=== PATIENT | male | born 1970 | race Caucasian/White ===

== ENCOUNTER 2017-12-05 21:13 | Emergency (ER) | payer OTHER, MEDICAID ==
--- NOTE | 2017-12-05 21:37 | EDPHY ---
HPI/HX/ROS/PE/MDM Narrative: CHIEF COMPLAINT: Shortness of breath, chest tightness HPI: This patient is a healthy 47 year old male. He presents following an episode of sudden onset shortness of breath while at dinner with friends. He felt it was difficult to take a deep breath. This was associated with a sensation of chest tightness and "concern". He has tingling in his hands for 1-2 minutes. He denies chest pain. The patient exercises frequently and ran 5 miles earlier this evening. His symptoms began one hour after his run. In the last few months , he has noticed more difficulty when running, but has not had similar symptoms in the past. His friends gave 1100mg crushed ASA. The patient lay down and felt well within two minutes. He denies any diaphoresis. No arm or jaw pain. He denies any personal or family history of cardiac problems. He currently feels well and has no further complaints. REVIEW OF SYSTEMS: Aside from elements discussed in the HPI, a comprehensive 10-point review of systems was reviewed and is negative. PMH: Denies. SOCIAL HISTORY: Friends at bedside. 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 Lives in [place]. PHYSICAL EXAM: General:Patient is alert, in no acute distress. ENT:Eyes are normal to inspection. ENT inspection normal. Neck: Normal inspection. Full range of motion. Respiratory: No respiratory distress. Breath sounds normal bilaterally. Cardiovascular: Regular rate and rhythm. Strong peripheral pulses. Normal cap refill. Abdomen: The abdomen is nontender to palpation. There are no peritoneal signs. There are normal bowel sounds. Back: Normal to inspection. No tenderness to palpation. Skin: Normal color. No rash. Warm and dry. Extremities: Normal appearance. Full range of motion. Neuro: Oriented x3. Normal motor function. Normal sensory function. ED Course: 47 y/o male presents following an episode of shortness of breath and chest tightness, now resolved. Plan EKG, chest x-ray, labs including CBC, chemistries , troponin. 21:48 EKG was ordered and interpreted by myself. Please see [employer] system for official reading. Sinus rhythm. Early repol pattern. Laboratory studies largely unremarkable. Troponin pending. CXR negative for acute processes. Troponin negative. Reassessed patient. He continues to feel well. Discussed results of emergency department cardiac workup. Plan for repeat EKG. 22:40 Repeat EKG was ordered and interpreted by myself. Please see [employer] system for official reading. Unchanged from prior. 22:47 Reassessed patient. Plan to discharge patient home in good condition with referral to cardiology. Return precautions discussed. He is comfortable with this plan. MDM: This patient presents with transient chest tightness which has resolved. Of note , he was asymptomatic during a five mile run prior to this event. His workup in the ED is normal and his calculated HEART score is 2, making him low risk for cardiac event. I discussed this with the patient in detail and explained the utility of a repeat troponin as well as possible admission. The patient would like to be discharged home - we discussed strict return precautions. He will be given a cardiology referral. He understands that the etiology of his symptoms is unclear and that he would benefit from further testing. I see no evidence for PE, TAD, PNA, PTx or ACS. - Data Points Imaging Results: Imaging Impressions Chest X-Ray 12/05/17 21:43 Impression: Normal. No pneumonia. Imaging: I viewed and interpreted images myself Laboratory Results: Laboratory Results 12/05/17 21:55 12/05/17 21:55 12/05/17 12/05/17 21:55 21:55 WBC 10.05 10^3/uL H 10^3/uL (3.80-9.50) RBC 4.95 10^6/uL 10^6/uL (4.40-6.38) Hgb 15.0 g/dL g/dL (13.7-17.5) Hct 43.1 % % (40.0-51.0) MCV 87.1 fL fL (81.5-99.8) MCH 30.3 pg pg (27.9-34.1) MCHC 34.8 g/dL g/dL (32.4-36.7) RDW 13.4 % % (11.5-15.2) Plt Count 311 10^3/uL 10^3/uL (150-400) MPV 9.7 fL fL (8.7-11.7) Neut % (Auto) 69.2 % % (39.3-74.2) Lymph % (Auto) 22.0 % % (15.0-45.0) [place] % (Auto) 6.1 % % (4.5-13.0) Eos % (Auto) 2.0 % % (0.6-7.6) Baso % (Auto) 0.4 % % (0.3-1.7) Nucleat RBC Rel Count 0.0 % % (0.0-0.2) Absolute Neuts (auto) 6.96 10^3/uL H 10^3/uL (1.70-6.50) Absolute Lymphs (auto) 2.21 10^3/uL 10^3/uL (1.00-3.00) Absolute Monos (auto) 0.61 10^3/uL 10^3/uL (0.30-0.80) Absolute Eos (auto) 0.20 10^3/uL 10^3/uL (0.03-0.40) Absolute Basos (auto) 0.04 10^3/uL 10^3/uL (0.02-0.10) Absolute Nucleated RBC 0.00 10^3/uL 10^3/uL (0-0.01) Immature Gran % 0.3 % % (0.0-1.1) Immature Gran # 0.03 10^3/uL 10^3/uL (0.00-0.10) Sodium 140 mEq/L mEq/L (135-145) Potassium 4.9 mEq/L mEq/L (3.3-5.0) Chloride 104 mEq/L mEq/L (97-110) Carbon Dioxide 22 mEq/l mEq/l (22-31) Anion Gap 14 mEq/L mEq/L (8-16) BUN 21 mg/dL mg/dL (7-23) Creatinine 1.0 mg/dL mg/dL (0.7-1.3) Estimated GFR > 60 Glucose 90 mg/dL mg/dL (70-100) Calcium 9.2 mg/dL mg/dL (8.5-10.4) Troponin I 0.013 ng/mL ng/mL (0.000-0.034) General Time Seen by Provider: 12/05/17 21:30 Initial Vital Signs: Initial Vital Signs Temperature (C) 36.4 C 12/05/17 21:14 Heart Rate 72 12/05/17 21:14 Respiratory Rate 18 12/05/17 21:14 Blood Pressure 144/73 H 12/05/17 21:14 O2 Sat (%) 96 05/29/18 21:14 O2 Delivery Mode Room Air Allergies/Adverse Reactions: bee venom protein (honey bee) Allergy (Verified 12/05/17 21:20) Home Medications: Medication Instructions Recorded EPINEPHrine [Epipen] 0.3 mg IM ONCE #2 syr 02/28/15 Prozac 10 MG (*) 12/05/17 Departure - Departure Disposition: Home, Routine, Self-Care Clinical Impression: Chest tightness, Shortness of breath Condition: Good Instructions: Chest Pain (ED), Shortness of Breath (ED) Additional Instructions: Follow-up with your primary doctor within 2-3 days. Return to the Emergency Department for fever, chest pain, shortness of breath, increasing pain or other worsening of condition. Follow up with a neuro urologist for further testing, as soon as possible, within one week. As we discussed, it is impossible to fully rule out heart disease as the cause of your chest pain in the emergency department. We would be happy to reevaluate you and observe you in the hospital at any time. Referrals: Vale Miller MD [Medical Doctor] - As per Instructions Report Scribed for: Ken Lyons Report Scribed by: Jaylin Whitney Date of Report: 12/05/17 Time of Report: 21:31 Physician Review and Approval Statement: Portions of this note were transcribed by an ED scribe. I personally performed the history, physical exam, and medical decision making; and confirm the accuracy of the information in the transcribed note.
--- NOTE | 2017-12-05 21:50 | CPEKG ---
Heart Rate: 56 RR Interval: 1071 P-R Interval: 192 QRSD Interval: 88 QT Interval: 436 QTC Interval: 421 P [place]: 66 QRS [place]: 61 T Wave [place]: 15 EKG Severity - ABNORMAL ECG - EKG Impression: SINUS RHYTHM EKG Impression: LEFT VENTRICULAR HYPERTROPHY EKG Impression: ST ELEV, PROBABLE NORMAL EARLY REPOL PATTERN Electronically Signed By: Hawk Pandya 06-Dec-2017 11:51:05
[2017-12-05 22:05] LABS: PLATELET COUNT 311 10^3/uL (150-400)
[2017-12-05 23:04] VITALS: BP 107/61
--- NOTE | 2017-12-06 09:19 | CPEKG ---
Heart Rate: 52 RR Interval: 1154 P-R Interval: 196 QRSD Interval: 92 QT Interval: 452 QTC Interval: 421 P [place]: 62 QRS [place]: 54 T Wave [place]: 10 EKG Severity - ABNORMAL ECG - EKG Impression: SINUS RHYTHM EKG Impression: LEFT VENTRICULAR HYPERTROPHY EKG Impression: ST ELEV, PROBABLE NORMAL EARLY REPOL PATTERN Electronically Signed By: Hawk Pandya 06-Dec-2017 11:50:40
== END 2017-12-05 23:12 | disposition home or self-care (01) ==
DX: R06.02 Shortness of breath (principal); R07.89 Other chest pain